=== PATIENT | male | born 1960 | race Caucasian/White ===

== ENCOUNTER 2016-12-05 20:47 | Emergency (ER) | payer OTHER ==
[~2016-12-05 20:47] MED LIST: ADDERALL 20 MG20 M1 PO; BACTRIM DS TAB1 EACH PO; CLONAZEPAM 1 MG1 M1 PO; DILAUDID-H10 MG/1 M1 IT; FLOMAX0.4 MG PO; FLONASE 0.05%50 MCG NASAL; LAMICTAL XR100 MG PO; LAMICTAL100 MG PO; LIORESAL 10 MG10 MG IT; MOBIC15 MG PO; NEURONTIN 300300 M1 PO; NORCO 10-325 T1 EACH PO; PERCOCET 10-321 EACH PO; PROZAC40 MG PO; RISPERDAL2 MG PO; TOPROL XL50 MG PO; URECHOLINE 10 M10 M1 PO; VALIUM5 MG PO; ZANAFLEX4 MG PO
[2016-12-05 20:54] VITALS: BP 153/87
== END 2016-12-05 21:25 | disposition home or self-care (01) ==
LOC: ER 20:47
DX: Z53.21 Procedure and treatment not carried out due to patient leaving prior to being seen by health care provider (principal)

== ENCOUNTER 2016-12-07 08:27 | Emergency (ER) | payer OTHER ==
[~2016-12-07] VITALS: Ht 175.3 cm; Wt 120.2 kg
[2016-12-07 09:44] LABS: HEMOGLOBIN 13.8 gm/dL (14.0-18.0); MCHC 34.4 g/dL (28.0-37.0); MCV 95.8 fL (80.0-100.0); RBC 4.17 mil/uL (4.50-6.00); RDW 14.1 % (10.5-14.5)
[2016-12-07 09:51] LABS: POTASSIUM 3.8 mmol/L (3.5-5.1)
[2016-12-07 11:03] VITALS: BP 148/75
== END 2016-12-07 11:06 | disposition home or self-care (01) ==
LOC: ER 08:27
PROVIDERS: Emergency Medicine
DX: R60.0 Localized edema (principal); R06.00 Dyspnea, unspecified; F31.9 Bipolar disorder, unspecified; G47.30 Sleep apnea, unspecified; F10.99 Alcohol use, unspecified with unspecified alcohol-induced disorder; Z90.89 Acquired absence of other organs

== ENCOUNTER 2017-05-29 22:18 | Emergency (ER) | payer OTHER ==
[~2017-05-29] VITALS: Ht 177.8 cm; Wt 124.7 kg
--- NOTE | ~2017-05-29 | EKG ---
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 : 1960 Requested By: Joleen Morton Order Number: [id number] MD: Shaun Ray Measurements Intervals [facility] Rate: 69 P: 21 MI: 158 QRS: 43 QRSD: 94 T: 47 QT: 382 QTc: 410 Interpretive Statements Sinus rhythm No significant abnormality Baseline wander in lead(s) V2 Compared to ECG 11/01/2015 14:31:06 Early R-wave progression no longer present Electronically Signed On 05-31-2017 8:22:35 CDT by Shaun Ray [email or web address] <ELECTRONICALLY SIGNED> By: Shaun Ray MD, [facility] 05/31/17821 38 38 Shaun Ray MD, FAC /EPI
[2017-05-29] MEDS ORDERED: NAPROSYN500 MG PO (23:18)
[2017-05-29] MEDS ORDERED: AMOXICILLIN 50500 MG PO (23:18)
[2017-05-29] MEDS ORDERED: PREDNISONE 20 M20 MG PO (23:18)
[2017-05-30 00:21] VITALS: BP 127/82
== END 2017-05-30 | disposition home or self-care (01) ==
LOC: ER 22:18
DX: M26.601 Right temporomandibular joint disorder, unspecified (principal); K11.20 Sialoadenitis, unspecified

== ENCOUNTER 2017-06-19 16:42 | Emergency (ER) | payer OTHER ==
[~2017-06-19] VITALS: Ht 175.3 cm; Wt 128.4 kg
[~2017-06-19 16:42] MED LIST changes: +AMOXICILLIN 50500 MG PO; +NAPROSYN500 MG PO; +PREDNISONE 20 M20 MG PO
[2017-06-19 17:56] LABS: ABSOLUTE NEUTROPHILS 2.3 thou/uL (1.4-8.2); BASOPHILS 0.8 % (0.0-2.0); EOSINOPHILS 4.3 % (0.0-3.0); HEMATOCRIT 41.8 % (42.0-52.0); HEMOGLOBIN 14.4 gm/dL (14.0-18.0); LYMPHOCYTES 33.2 % (24.0-44.0); MCH 33.1 pg (26.0-34.0); MCHC 34.5 g/dL (28.0-37.0); MCV 96.1 fL (80.0-100.0); PLATELET COUNT 179 thou/uL (150-400); POLYS 51.7 % (36.0-66.0); RBC 4.35 mil/uL (4.50-6.00); RDW 13.3 % (10.5-14.5); WBC 4.5 thou/uL (4.0-11.0)
[2017-06-19 18:05] LABS: CALCIUM 8.8 mg/dL (8.5-10.1); POTASSIUM 3.7 mmol/L (3.5-5.1)
[2017-06-19 18:11] LABS: ALBUMIN 3.7 g/dL (3.4-5.0); TOTAL BILIRUBIN 0.3 mg/dL (<0.1-1.0); TOTAL PROTEIN 7.1 g/dL (6.4-8.2)
[2017-06-19 19:11] VITALS: BP 133/89
== END 2017-06-19 19:13 | disposition home or self-care (01) ==
LOC: ER 16:42
PROVIDERS: Nurse Practitioner Family
DX: R60.0 Localized edema (principal); I87.2 Venous insufficiency (chronic) (peripheral); F31.9 Bipolar disorder, unspecified; I10 Essential (primary) hypertension; Z90.89 Acquired absence of other organs; Z88.3 Allergy status to other anti-infective agents; Z88.1 Allergy status to other antibiotic agents; Z91.040 Latex allergy status

== ENCOUNTER 2017-07-18 22:54 | Inpatient (IN) | payer OTHER ==
[~2017-07-18] VITALS: Ht 170.2 cm; Wt 123.0 kg
--- NOTE | ~2017-07-18 | EKG ---
[address] [address] ELECTROCARDIOGRAM REPORT Name: VICENTE MILTON Room #: 238-P ADM IN M.R.#: [id number] Admission: 07/19/17 Attend Phys: Connor Saenz MD Discharge: Date of : 62 Report #: [id number] THIS REPORT FOR: //name// [facility] ED Test Date: 2017-07-18 Test Time: 23:05:02 Pat Name: VICENTE MILTON Department: Room: Gender: M Chief Deputy: benjy : 1960 Requested By: Cedric Duenas Order Number: [id number] MD: Edgardo Cooper Measurements Intervals [place] Rate: 119 P: 48 [place]: 151 QRS: 27 QRSD: 81 T: 33 QT: 315 QTc: 444 Interpretive Statements Sinus tachycardia Abnormal R-wave progression, early transition Compared to ECG 05/29/2017 22:39:35 Sinus rhythm no longer present Electronically Signed On 07-19-2017 8:01:49 CDT by Edgardo Cooper [email or web address] <ELECTRONICALLY SIGNED> By: Edgardo Cooper MD 07/19/17 0801 04 04 Edgardo Cooper MD /JOSE
--- NOTE | ~2017-07-18 | 2DMMODE ---
[facility] [address] [place] [address] 2 D/M-MODE ECHOCARDIOGRAM Name: VICENTE MILTON Room #: 238-P ADM IN [facility]#: [id number] Admission: 07/19/17 Attend Phys: Connor Saenz MD Discharge: Date of : 62 Date of Service: 07/19/17 1443 Report #: [id number] THIS REPORT FOR: //name// APPROVED REPORT Study performed: 07/19/2017 12:46:37 EXAM: Comprehensive 2D, Doppler, and color-flow Echocardiogram Patient Location: ICU Room #: 238 Status: routine BSA: 2.42 HR: 100 bpm BP: 152/92 mmHg Rhythm: Tachycardia Other Information Study Quality: Adequate Technically limited study due to no patient cooperation, obesity. Indications Elevated troponin, pulmonary embolism. Echo Enhancing Agent Indication: Endocardial border delineation Agent(s) / Amount(s) Used: Definity, Optison 5 cc 2D Dimensions RVDd: 39.23 mm LVEF(%): 53.85 (>50%) IVSd: 12.01 (7-11mm) LVOT Diam: 25.24 (18-24mm) LVDd: 50.95 mm PWd: 11.50 (7-11mm) Ascending Ao: 43.59 (22-36mm) LVDs: 36.70 (25-40mm) Aortic Root: 45.52 mm Doll's LVEF: 53.85 % Volumes Left Atrial Volume (Systole) Single Plane 4CH: 68.02 mL Single Plane 2CH: 56.41 mL LA ESV Index: 28.00 mL/m2 Aortic Valve AoV Peak Alejandro.: 1.81 m/s AO Peak Gr.: 13.11 mmHg LVOT Max P.06 mmHg [facility] [address] [place] [address] 2 D/M-MODE ECHOCARDIOGRAM Name: VICENTE MILTON Room #: 238-P [facility] IN ..#: [id number] Admission: 07/19/17 Attend Phys: Connor Saenz MD Discharge: Date of : 62 Date of Service: 07/19/17 1443 Report #: [id number] LVOT Max V: 1.59 m/s SYDNEY Vmax: 4.38 cm2 Mitral Valve E/A Ratio: 0.9 MV Decel. Time: 284.98 ms MV E Max Alejandro.: 0.64 m/s MV A Alejandro.: 0.73 m/s MV PHT: 82.65 ms IVRT: 79.58 ms Pulmonary Valve PV Peak Alejandro.: 1.20 m/s PV Peak Gr.: 5.74 mmHg Pulmonary Vein P Vein S: 0.45 m/s P Vein D: 0.32 m/s P Vein S/D Ratio: 1.41 Left Ventricle The left ventricle is normal size. Mild concentric left ventricular hypertrophy. Left ventricular systolic function is normal. LVEF is 55-60%. Mild diastolic dysfunction is present (impaired relaxation pattern). Right Ventricle Right ventricle is not well visualized but appears grossly normal in size and function. Atria The left atrium size is normal. The right atrium size is normal. Aortic Valve The aortic valve is normal in structure. No aortic regurgitation is present. There is no aortic valvular stenosis. Mitral Valve The mitral valve is normal in structure. Mild mitral regurgitation. Tricuspid Valve The tricuspid valve is normal in structure. There is no tricuspid valve regurgitation noted. Unable to assess PA pressure. Pulmonic Valve [facility] [address] [place] [address] 2 D/M-MODE ECHOCARDIOGRAM Name: VICENTE MILTON Room #: 238-P [facility] IN ..#: [id number] Admission: 07/19/17 Attend Phys: Connor Saenz MD Discharge: Date of : 62 Date of Service: 07/19/17 1443 Report #: [id number] The pulmonary valve is normal in structure. Trace pulmonic regurgitation. Great Vessels Aortic root is dilated at 4.6cm. Ascending aorta is dilated at 4.4cm. The inferior vena cava is not well visualized. Pericardium There is no pericardial effusion. <Conclusion> The left ventricle is normal size. Mild concentric left ventricular hypertrophy. Left ventricular systolic function is normal. Mild diastolic dysfunction is present (impaired relaxation pattern). Right ventricle is not well visualized but appears grossly normal in size and function. The left atrium size is normal. The aortic valve is normal in structure. Mild mitral regurgitation. Ascending aorta is dilated at 4.4cm. <ELECTRONICALLY SIGNED> By: Jan Varghese MD 07/19/17 1443 1443 1443 Jan Varghese MD /INF
--- NOTE | ~2017-07-18 | HC ---
[facility] [place] [address] CONSULTATION Name: VICENTE MILTON Room #: 238-P [facility] IN M.R.#: [id number] Admission: 07/19/17 Attend Phys: Connor Saenz MD Discharge: Date of : 62 Report #: [id number] THIS REPORT FOR: //name// CC: [facility] physician/PCP Connor Saenz PULMONARY CONSULTATION REFERRING PHYSICIAN: Dr. Dany M.D. PRIMARY CARE PHYSICIAN: Unknown. REASON FOR REFERRAL: Acute respiratory failure. HISTORY OF PRESENT ILLNESS: The patient is a 57-year-old white male who was brought to the Emergency Room with altered mental status, was found to be hypoxic. A pulmonary consultation was requested. The patient lives by himself. Earlier today, he had either fallen or had a syncopal episode at home. The patient's neighbor had looked in on him. He was found to be lying on the kitchen floor, 911 was called. When he was brought to the Emergency Room, he was somewhat disoriented. He was hypoxic. The patient was admitted with possible syncopal episode with acute renal failure. He is presently awake, restless, not tolerating the BiPAP. His brother from [place], [place] is here. He is not familiar with his medical history. He does not know who his primary care physician is. The patient has been seen in the ER at [place] on multiple occasions. PAST MEDICAL HISTORY: Notable for sleep apnea, had been apparently on a CPAP at home. Chronic back pain with prior multiple back surgeries, now with recent pain pump placement. He had a posterior lumbar interbody fusion L3-L5, anterior back surgery with mesh and bone tissue in 2016. Bipolar disorder, undergone electric shock therapy in [id number] at [facility]; collarbone fracture at the age of 11; umbilical hernia repair in 1998; liposuction in 1998; adenoidectomy and tonsillectomy in 2013. ALLERGIES: ARMODAFINIL WHICH CAUSES ANAPHYLAXIS; LATEX, REACTIONS NOT SPECIFIED; AMOXICILLIN CAUSES SEVERE DIARRHEA. HOME MEDICATIONS: Include oxycodone, Neurontin, Risperdal, Toprol-XL, Dilaudid, Flomax, Lamictal, baclofen, Urecholine, Mobic, Zanaflex, Prozac, Valium, Adderall 20 mg p.o. t.i.d. FAMILY HISTORY: Noncontributory. [facility] [address] [place] [address] CONSULTATION Name: VICENTE MILTON Room #: 238-P [facility] IN .R.#: [id number] Admission: 07/19/17 Attend Phys: Connor Saenz MD Discharge: Date of : 62 Report #: [id number] SOCIAL HISTORY: , lives by himself, has 2 sons who live in [place]. He has a couple of siblings, one brother lives in [place], [place], who is here presently. The patient does drink socially. No history of tobacco use. REVIEW OF SYSTEMS: Deferred as the patient is somewhat restless, intermittently incoherent. PHYSICAL EXAMINATION: GENERAL: He is awake, restless, complaining of back pain. VITAL SIGNS: Temperature is 98.9 degrees Fahrenheit, pulse is 100, respiratory rate is 30, blood pressure is 150/105 mmHg, saturation 95%. HEENT: Normocephalic, atraumatic. NECK: Supple without any lymphadenopathy or thyromegaly. CHEST: Breath sounds are fair bilaterally without obvious wheezes or rales. CARDIOVASCULAR: Normal S1, S2. No murmurs or gallop. There is no JVD. There is no carotid bruit. Pulses are 2+/4+ bilaterally. ABDOMEN: Obese, soft, nontender. No organomegaly or masses felt. GENITOURINARY: Deferred. RECTAL: Deferred. EXTREMITIES: There is no edema, cyanosis or clubbing. LABORATORY DATA: CT chest angiogram performed yesterday reveals small right lower lobe pulmonary embolus, mild infiltrates seen in both lower lung connolly. Echocardiogram was grossly unremarkable, pulmonary artery pressure was not mentioned, mild diastolic dysfunction is noted. Venous Doppler ultrasounds of the lower extremities were negative for DVT. Urine drug screen was positive for opiates. CT head was unremarkable. EKG shows sinus tachycardia, no acute ischemic changes. Sodium 148, potassium 3.7, chloride 110, CO2 33, BUN is 19, creatinine is 1.1. WBC 8000, hemoglobin 14.0, platelets are normal. Troponin is 2.1. Arterial blood gas is pending. CPK was over 20,000. IMPRESSION: 1. Acute hypoxic respiratory failure in this 57-year-old white male. CT chest angiogram reveals small pulmonary embolus involving the right lower lobe. Mild infiltrates noted. Echocardiogram noted. He also has a history of obstructive sleep apnea. His current hypoxia is probably not related to pulmonary embolus, but other processes. Pulmonary embolus again is felt to be small to count for possible syncope and current hypoxia. 2. Small pulmonary embolus, right lower lobe. Risk factors not entirely clear, but suspect he may have trouble with sedentary state. We will need to further stratify his risk factors when stable. If no risk factors identified, may need to consider hypercoagulable workup. Agree with anticoagulation for now. 3. Obstructive sleep apnea. He has been on CPAP at home according to the brother, 4. Elevated troponin. With a history of fall, rhabdomyolysis is suspected. [facility] [address] [place] [address] CONSULTATION Name: VICENTE MILTON Room #: 238-P ADM IN M.R.#: [id number] Admission: 07/19/17 Attend Phys: Connor Saenz MD Discharge: Date of : 62 Report #: [id number] Would recommend maintaining high urine output to avoid nephrotoxicity. 5. Elevated troponin. Cardiology has been consulted, may be part of skeletal muscle injury as mentioned above. 6. Encephalopathy. may be multifactorial. Review of medications suggest that he is on benzodiazepines along with chronic narcotics. CT head initially has been negative. 7. Acute kidney injury presumably related to rhabdomyolysis. Again, maintain high urine output. 8. Bipolar disorder. 9. Chronic back pain, status post remote pain pump placement, on chronic narcotics. 10. Polypharmacy. Note the patient is also on Adderall on top of benzodiazepine and narcotics. RECOMMENDATIONS: Agree with anticoagulation, wean O2 for saturation 90%. Can try to wean off BiPAP. Would resume home CPAP during sleep and p.r.n. BiPAP on days if necessary. In terms of his small pulmonary embolus, would suggest close followup as mentioned above. If no risk factors identified, the patient may need prolonged anticoagulation. Hypercoagulable workup may also be helpful. Once stable in the near future, the patient may benefit from counseling regarding chronic narcotic use and benzodiazepine use. DVT and GI prophylaxis will be addressed. Thank you for this consultation. <ELECTRONICALLY SIGNED> By: Tyson Telles MD 07/21/17 1507 1242 1833 Tyson Telles MD /nt
--- NOTE | ~2017-07-18 | EEG ---
[facility] [place] [address] ELECTROENCEPHALOGRAM Name: VICENTE MILTON Room #: 238-P ADM IN M.R.#: [id number] Admission: 07/19/17 Attend Phys: Connor Saenz MD Discharge: Date of : 62 Report #: [id number] THIS REPORT FOR: //name// CC: [facility] physician/PCP Connor Saenz DATE OF SERVICE: 07/20/2017 This patient is being evaluated for altered mental status. EEG was done by placing the electrodes by standard 10-20 system of electrode placement. Both referential and sequential montages were used for recording. A lot of artifact was present because the patient did not cooperate. That makes it very difficult to interpret this EEG. Photic stimulation was unremarkable. The patient did become drowsy and that is associated with bilateral slowing. Throughout the record, intermixed slowing was present. IMPRESSION: This is an abnormal EEG because it is disorganized and poorly formed. That is a nonspecific abnormality, which can occur with encephalopathy, effect of psychotropic medication, dementia, etc. Clinical correlation is recommended. By: [id number] Bret Painting MD /nt
--- NOTE | ~2017-07-18 | HC ---
[facility] [place] [address] [address] [place] [address] CONSULTATION Name: VICENTE MILTON Room #: 238-P [facility] IN ..#: [id number] Admission: 07/19/17 Attend Phys: Connor Saenz MD Discharge: Date of : 62 Report #: [id number] THIS REPORT FOR: //name// CC: [facility] physician/PCP Connor Saenz DATE OF SERVICE: 07/20/2017 HISTORY OF PRESENT ILLNESS: This is a 57-year-old male patient who was evaluated by me for any neurological etiology for the patient's confusion. The patient's brother is there, he provided some history and part of the history is taken from the record. The record indicated that this patient has a history of bipolar disorder. He also has a chronic back pain. He follows up with a pain management doctor. He has a spinal cord stimulator. He also has morphine pump. He is also on multiple medications including opioid. He apparently hit his head, but no further history is available and he has been confused. It looks like he had a CT scan on admission that was unremarkable. He was found to have pulmonary emboli, but the embolus was small. He is on multiple medications, is not clear if he was taking his medication or overdosing it or he is withdrawing from his drugs at home. REVIEW OF SYSTEMS: Indicate that this patient has a psychiatric problem. He is confused. His troponin is high, but not very high. He does have some hyponatremia. His last GFR was okay, but his creatinine kinase is still more than 20,000. He is tachycardic. I talked to the patient's brother, he knows some history, but not very detailed history and this is all the 14-point review of system I can get. PAST MEDICAL HISTORY: Positive for back pain. FAMILY HISTORY: Negative for early age stroke. SOCIAL HISTORY: He says he does not drink any alcohol. PHYSICAL EXAMINATION: Indicate he is alert. His speech is there. He is in restraints, but he does not know what month it is, what day it is. I tried to do the cranial nerve examination, I cannot do a very good cranial nerve examination. It does not look like he moves his eyes in all the direction properly, but I cannot be certain because he does not cooperate. He moves all 4 extremities. He does not complain of any neck pain. He does not have much respiratory difficulty. He is a very well-built individual who does not have any dysmorphic features of eyes, ears and face. He is afebrile. His blood pressure is 152/105, his pulse is 108, his respiration is 29. His cardiac examinations appear noncontributory. LABORATORY DATA: His white count is normal. He does have a slight [facility] [address] [place] [address] CONSULTATION Name: VICENTE MILTON Room #: 238-P [facility] IN ..#: [id number] Admission: 07/19/17 Attend Phys: Connor Saenz MD Discharge: Date of : 62 Report #: [id number] hyponatremia. His GFR was 42, but is up to 69 now. IMPRESSION: Confusion and agitation of unknown etiology. This patient needs further workup. He also needs agitation control. Workup is difficult. He apparently has a stimulator which as I understand is a contraindication for doing an MRI and he is so agitated that we cannot even do MRI. He is on heparin, so we cannot do a spinal tap in this patient. I will start with an EEG. We will try to avoid any contrast because the patient just had a renal failure, all of it will limit his workup we can do. RECOMMENDATIONS: 1. I will try to talk to Dr. Saenz and I will suggest a psychiatric consult because of his agitation. 2. I will get an EEG done. 3. If he continues to be agitated, we may have to do an LP, although there is no indication that this patient has any OIL BOILER infection. 4. I think the question of either drug withdrawal or medication related problems need to be addressed in this patient. 5. Presently the patient is so agitated, till his agitation control is done nothing much can be done and I will suggest a psychiatric consult to control his agitation. Thank you very much for this referral. By: 1539 Bret Painting MD /jaison
--- NOTE | ~2017-07-18 | EEG ---
[facility] [place] [address] [address] [address] ELECTROENCEPHALOGRAM Name: VICENTE MILTON Room #: 238-P [facility] IN M.R.#: [id number] Admission: 07/19/17 Attend Phys: Connor Saenz MD Discharge: Date of : 62 Report #: [id number] THIS REPORT FOR: //name// CC: [facility] physician/PCP Connor Saenz DATE OF SERVICE: 07/22/2017 This patient is being evaluated for altered mental status. The EEG was done by placing the electrode by standard 10-20 system of electrode placement. Both referential and sequential montages were used for recording. Background activity in this patient's EEG is about 9 Hz and 30 microvolt. Photic stimulation was unremarkable. The patient's EEG is intermixed with theta range slowing on both sides. No active epileptiform activity was noticed. IMPRESSION: This patient's electroencephalogram is intermixed with theta range slowing on both sides. That is a nonspecific abnormality, which can occur with encephalopathy, effect of psychotropic medication, dementia, etc. No active epileptiform activity was noticed. By: [id number] 1705 Bret Painting MD /nt
[2017-07-18 22:58] VITALS: BP 164/97
[2017-07-19] VITALS (56 sets, daily range): BP systolic 116–185; BP diastolic 78–152
[2017-07-19 01:41] LABS: HEMATOCRIT 46.8 % (42.0-52.0); HEMOGLOBIN 15.5 gm/dL (14.0-18.0); MCH 32.5 pg (26.0-34.0); MCHC 33.1 g/dL (28.0-37.0); MCV 98.2 fL (80.0-100.0); RBC 4.76 mil/uL (4.50-6.00); WBC 11.4 thou/uL (4.0-11.0)
[2017-07-19 01:43] LABS: URINE BILIRUBIN NEGATIVE (Negative); URINE BLOOD 3+ (Negative); URINE CLARITY CLEAR; URINE COLOR YELLOW; URINE GLUCOSE-RANDOM* NEGATIVE (Negative); URINE KETONES NEGATIVE (Negative); URINE LEUKOCYTES-REFLEX NEGATIVE (Negative); URINE NITRITE-REFLEX NEGATIVE (Negative); URINE PROTEIN (DIPSTICK) TRACE (Negative); URINE UROBILINOGEN 0.2 E.U./dl (0.2-1.0)
[2017-07-19 01:49] LABS: CALCIUM 8.7 mg/dL (8.5-10.1); CREATININE 1.7 mg/dL (0.7-1.3); POTASSIUM 4.4 mmol/L (3.5-5.1)
[2017-07-19 01:53] LABS: AMP/METHAMP Negative (Negative); BARBITURATES Negative (Negative); BENZODIAZEPINES Negative (Negative); COCAINE Negative (Negative); METHADONE Negative (Negative); OPIATES POSITIVE (Negative); PCP Negative (Negative)
[2017-07-19 02:08] LABS: TROPONIN-I 2.56 ng/mL (<0.06)
[2017-07-19 02:10] LABS: BACTERIA-REFLEX None Seen /HPF (None Seen); CASTS None Seen /LPF (None Seen); CRYSTALS None Seen /LPF (None Seen); MUCUS None Seen strn/LPF (None Seen); SQUAMOUS None Seen /LPF (0-3); URINE RBC 0-2 Rare /HPF (0-2); URINE WBC-REFLEX 0-5 Rare /HPF (0-5)
[2017-07-19 05:25] LABS: FOLIC ACID 18.1 ng/mL (8.6-58.9); TSH 0.331 uIU/mL (0.358-3.740)
[2017-07-19 08:30] LABS: HEMATOCRIT 44.1 % (42.0-52.0); HEMOGLOBIN 15.1 gm/dL (14.0-18.0); MCH 32.8 pg (26.0-34.0); MCHC 34.3 g/dL (28.0-37.0); MCV 95.7 fL (80.0-100.0); RBC 4.61 mil/uL (4.50-6.00); RDW 13.8 % (10.5-14.5); WBC 9.3 thou/uL (4.0-11.0)
[2017-07-19 08:43] LABS: APTT 28.4 Seconds (24.5-32.8); INR 1.2
[2017-07-20] VITALS (24 sets, daily range): BP systolic 112–196; BP diastolic 70–160
[2017-07-20 01:31] LABS: HEMATOCRIT 41.5 % (42.0-52.0); MCH 32.7 pg (26.0-34.0); MCHC 33.8 g/dL (28.0-37.0); MCV 96.6 fL (80.0-100.0); RBC 4.3 mil/uL (4.50-6.00); RDW 13.7 % (10.5-14.5); WBC 6.8 thou/uL (4.0-11.0)
[2017-07-20 01:36] LABS: CALCIUM 8.2 mg/dL (8.5-10.1); POTASSIUM 3.7 mmol/L (3.5-5.1)
[2017-07-20 05:20] LABS: CALCIUM 8.2 mg/dL (8.5-10.1); CREATININE 1.1 mg/dL (0.7-1.3); POTASSIUM 3.7 mmol/L (3.5-5.1)
[2017-07-20 05:29] LABS: HEMATOCRIT 41.3 % (42.0-52.0); MCH 32.6 pg (26.0-34.0); RBC 4.3 mil/uL (4.50-6.00); RDW 13.7 % (10.5-14.5)
[2017-07-20 14:09] LABS: BE(vivo) 6.4 mmol/L (-2 to +3); HCO3 30.7 mmol/L (22.0-26.0); PCO2 42.7 mmHg (35.0-45.0); PO2 62.9 mmHg (80.0-100.0); pH 7.474 (7.360-7.450); sO2 93.3 % (92.0-98.0)
[2017-07-21] VITALS (24 sets, daily range): BP systolic 129–180; BP diastolic 64–125
[2017-07-21 05:32] LABS: HCO3 27.2 mmol/L (22.0-26.0); PCO2 39.9 mmHg (35.0-45.0); PO2 75.6 mmHg (80.0-100.0); pH 7.451 (7.360-7.450); sO2 95.7 % (92.0-98.0)
[2017-07-21 07:07] LABS: HEMATOCRIT 39.8 % (42.0-52.0); HEMOGLOBIN 13.6 gm/dL (14.0-18.0); MCH 32.7 pg (26.0-34.0); MCHC 34.3 g/dL (28.0-37.0); MCV 95.2 fL (80.0-100.0); RBC 4.17 mil/uL (4.50-6.00); RDW 13.7 % (10.5-14.5); WBC 7.8 thou/uL (4.0-11.0)
[2017-07-21 07:53] LABS: CALCIUM 9.1 mg/dL (8.5-10.1); POTASSIUM 3.8 mmol/L (3.5-5.1)
[2017-07-22] VITALS (23 sets, daily range): BP systolic 100–181; BP diastolic 65–111
[2017-07-22 03:25] LABS: HEMATOCRIT 38.4 % (42.0-52.0); HEMOGLOBIN 13.5 gm/dL (14.0-18.0); MCH 33.1 pg (26.0-34.0); MCV 94.3 fL (80.0-100.0); RBC 4.07 mil/uL (4.50-6.00); RDW 13.2 % (10.5-14.5)
[2017-07-22 03:47] LABS: CALCIUM 8.9 mg/dL (8.5-10.1)
[2017-07-23] VITALS (25 sets, daily range): BP systolic 98–152; BP diastolic 44–102
[2017-07-24] VITALS (17 sets, daily range): BP systolic 114–155; BP diastolic 73–106
[2017-07-24 09:48] LABS: EOSINOPHILS 1.7 % (0.0-3.0); WBC 7.5 thou/uL (4.0-11.0)
[2017-07-24 09:50] LABS: BASOPHILS 0.3 % (0.0-2.0); HEMATOCRIT 42.9 % (42.0-52.0); HEMOGLOBIN 14.8 gm/dL (14.0-18.0); LYMPHOCYTES 21.9 % (24.0-44.0); MCH 33.1 pg (26.0-34.0); MCHC 34.4 g/dL (28.0-37.0); MCV 96.2 fL (80.0-100.0); MONOCYTES 9.6 % (1.0-8.0); PLATELET COUNT 232 thou/uL (150-400); POLYS 66.5 % (36.0-66.0); RBC 4.46 mil/uL (4.50-6.00)
[2017-07-24 09:59] LABS: CALCIUM 8.9 mg/dL (8.5-10.1); CREATININE 1.1 mg/dL (0.7-1.3); POTASSIUM 4.2 mmol/L (3.5-5.1)
[2017-07-25 04:15] LABS: ABSOLUTE NEUTROPHILS 3.5 thou/uL (1.4-8.2); BASOPHILS 0.7 % (0.0-2.0); EOSINOPHILS 2.2 % (0.0-3.0); HEMATOCRIT 43.3 % (42.0-52.0); HEMOGLOBIN 14.7 gm/dL (14.0-18.0); LYMPHOCYTES 31.4 % (24.0-44.0); MCV 97.2 fL (80.0-100.0); MONOCYTES 9.8 % (1.0-8.0); PLATELET COUNT 216 thou/uL (150-400); POLYS 55.9 % (36.0-66.0); RBC 4.45 mil/uL (4.50-6.00); WBC 6.3 thou/uL (4.0-11.0)
[2017-07-25 04:16] VITALS: BP 135/73
[2017-07-25 04:23] LABS: ALBUMIN 3.4 g/dL (3.4-5.0); CALCIUM 9.2 mg/dL (8.5-10.1); CREATININE 0.8 mg/dL (0.7-1.3); POTASSIUM 4.2 mmol/L (3.5-5.1); TOTAL BILIRUBIN 0.7 mg/dL (<0.1-1.0); TOTAL PROTEIN 7.2 g/dL (6.4-8.2)
[2017-07-25 07:42] VITALS: BP 122/72
[2017-07-25 12:55] VITALS: BP 116/80
[2017-07-25 16:12] VITALS: BP 129/90
[2017-07-25 20:34] VITALS: BP 134/75
[2017-07-26 06:00] VITALS: BP 123/78
[2017-07-26 08:00] VITALS: BP 125/89
[2017-07-26 12:05] VITALS: BP 130/79
[2017-07-26] MEDS ORDERED: ELIQUIS5 MG PO (12:19)
[2017-07-26 12:51] VITALS: BP 130/79
[2017-07-26 13:03] VITALS: BP 130/79
== END 2017-07-26 13:48 | disposition home or self-care (01) | DRG 280 ==
LOC: ER 22:54 → EROBS 07-19 03:42 → ICU 07-19 03:42 → 2N 07-24 14:50
PROVIDERS: Emergency Medicine; Hospitalist; Internal Medicine Pulmonary Disease; Nurse Practitioner Family
PROC: 5A09357 Assistance with Respiratory Ventilation, Less than 24 Consecutive Hours, Continuous Positive Airway Pressure (ICD-10-PCS; principal; 2017-07-19)
PROC: 5A09357 Assistance with Respiratory Ventilation, Less than 24 Consecutive Hours, Continuous Positive Airway Pressure (ICD-10-PCS; 2017-07-20)
PROC: 5A09357 Assistance with Respiratory Ventilation, Less than 24 Consecutive Hours, Continuous Positive Airway Pressure (ICD-10-PCS; 2017-07-21)
PROC: 5A09357 Assistance with Respiratory Ventilation, Less than 24 Consecutive Hours, Continuous Positive Airway Pressure (ICD-10-PCS; 2017-07-22)
PROC: 5A09357 Assistance with Respiratory Ventilation, Less than 24 Consecutive Hours, Continuous Positive Airway Pressure (ICD-10-PCS; 2017-07-23)
PROC: 5A09357 Assistance with Respiratory Ventilation, Less than 24 Consecutive Hours, Continuous Positive Airway Pressure (ICD-10-PCS; 2017-07-24)
PROC: 5A09357 Assistance with Respiratory Ventilation, Less than 24 Consecutive Hours, Continuous Positive Airway Pressure (ICD-10-PCS; 2017-07-25)
PROC: 5A09357 Assistance with Respiratory Ventilation, Less than 24 Consecutive Hours, Continuous Positive Airway Pressure (ICD-10-PCS; 2017-07-26)
DX: I21.4 Non-ST elevation (NSTEMI) myocardial infarction (principal); I26.99 Other pulmonary embolism without acute cor pulmonale; G93.41 Metabolic encephalopathy; J96.01 Acute respiratory failure with hypoxia; N17.9 Acute kidney failure, unspecified; M62.82 Rhabdomyolysis; E87.0 Hyperosmolality and hypernatremia; Z60.2 Problems related to living alone; F31.9 Bipolar disorder, unspecified; M54.9 Dorsalgia, unspecified; G47.33 Obstructive sleep apnea (adult) (pediatric); R33.9 Retention of urine, unspecified; G89.4 Chronic pain syndrome; F20.9 Schizophrenia, unspecified; Z79.899 Other long term (current) drug therapy; Z88.1 Allergy status to other antibiotic agents; Z91.040 Latex allergy status; Z88.8 Allergy status to other drugs, medicaments and biological substances; Z98.1 Arthrodesis status; Z79.891 Long term (current) use of opiate analgesic
CPT/HCPCS: 10078; 10081

== ENCOUNTER 2018-03-13 06:27 | Emergency (ER) | payer OTHER ==
[~2018-03-13] VITALS: Ht 175.3 cm; Wt 117.9 kg
[~2018-03-13 06:27] MED LIST changes: +AZELASTINE137 MCG/0.; +CLONAZEPAM 0.50.5 M1 PO; +CYMBALTA60 MG PO; +ELIQUIS5 MG PO; +MEDROL4 M1 PO; +OXYCODONE HCL15 MG PO; +PROAIR HFA8.5 GM INH; +ZATADOR
[2018-03-13 07:42] LABS: ABSOLUTE NEUTROPHILS 4.1 thou/uL (1.4-8.2); BASOPHILS 0.6 % (0.0-2.0); EOSINOPHILS 1.2 % (0.0-3.0); HEMATOCRIT 37.9 % (42.0-52.0); HEMOGLOBIN 12.9 gm/dL (14.0-18.0); LYMPHOCYTES 24.9 % (24.0-44.0); MCH 32.2 pg (26.0-34.0); MCHC 34.1 g/dL (28.0-37.0); MCV 94.3 fL (80.0-100.0); PLATELET COUNT 195 thou/uL (150-400); POLYS 61.3 % (36.0-66.0); RBC 4.02 mil/uL (4.50-6.00); RDW 13.8 % (10.5-14.5); WBC 6.6 thou/uL (4.0-11.0)
[2018-03-13 07:44] LABS: CALCIUM 9.3 mg/dL (8.5-10.1); CREATININE 0.9 mg/dL (0.7-1.3); POTASSIUM 3.2 mmol/L (3.5-5.1)
[2018-03-13 08:56] VITALS: BP 151/95
== END 2018-03-13 09:17 | disposition home or self-care (01) ==
LOC: ER 06:27
PROVIDERS: Emergency Medicine
DX: R10.30 Lower abdominal pain, unspecified (principal); I10 Essential (primary) hypertension; M54.5 Low back pain; G89.29 Other chronic pain; F31.9 Bipolar disorder, unspecified; Z88.1 Allergy status to other antibiotic agents; Z91.040 Latex allergy status; Z88.8 Allergy status to other drugs, medicaments and biological substances

== ENCOUNTER 2018-03-17 23:23 | Emergency (ER) | payer OTHER ==
[~2018-03-17] VITALS: Ht 175.3 cm; Wt 115.7 kg
[2018-03-18 00:06] VITALS: BP 128/81
== END 2018-03-18 00:07 | disposition home or self-care (01) ==
LOC: ER 23:23
DX: I10 Essential (primary) hypertension (principal); F31.9 Bipolar disorder, unspecified; Z88.8 Allergy status to other drugs, medicaments and biological substances; Z91.040 Latex allergy status; Z88.1 Allergy status to other antibiotic agents; Z86.718 Personal history of other venous thrombosis and embolism

== ENCOUNTER → 2018-08-02 | Outpatient (CLI) | payer OTHER | LOC: RAD 10:14 → CAT 10:14 | DX: J98.4 Other disorders of lung (principal); R60.0 Localized edema; M79.662 Pain in left lower leg; M79.661 Pain in right lower leg; R53.83 Other fatigue; M54.9 Dorsalgia, unspecified; G89.29 Other chronic pain; F31.9 Bipolar disorder, unspecified; I26.99 Other pulmonary embolism without acute cor pulmonale; G47.19 Other hypersomnia; G47.33 Obstructive sleep apnea (adult) (pediatric) ==